=== PATIENT | female | born 1965 ===

== ENCOUNTER 2018-12-19 10:27 | Outpatient (CLI) | payer BC | END 2018-12-19 10:28 | disposition home or self-care (01) | LOC: PULMO 10:27 ==

== ENCOUNTER 2019-01-04 06:31 | Outpatient (CLI) | payer BC | END 2019-01-04 06:32 | disposition home or self-care (01) | LOC: CARDIO 06:31 | DX: R06.02 Shortness of breath (principal); R00.1 Bradycardia, unspecified; Z01.810 Encounter for preprocedural cardiovascular examination; I27.20 Pulmonary hypertension, unspecified; I08.1 Rheumatic disorders of both mitral and tricuspid valves ==

== ENCOUNTER 2019-03-14 08:54 | Outpatient (CLI) | payer BC | END 2019-03-14 08:55 | disposition home or self-care (01) | LOC: PAT 08:54 ==

== ENCOUNTER 2019-03-27 08:11 | Inpatient (IN) | payer BC ==
[2019-03-27] MEDS ORDERED: Desflurane Inhalation Anesthetic Liq (240 ml) ONE (09:48)
[2019-03-27] MEDS ORDERED: Propofol 10 mg/ml Inj (20 ML) ONE (10:14)
[2019-03-27] MEDS ORDERED: Rocuronium 10 mg/ml (5 ml) ONE (10:15)
[2019-03-27] MEDS ORDERED: Succinylcholine 200 mg/10 ml Inj IV ONE (10:15)
[2019-03-27] MEDS ORDERED: CeFAZolin 1 gm in NS 100ml IVPB ONE (10:30)
[2019-03-27] MEDS ORDERED: Bupivacaine Liposomal Inj 20 ml INJ ONE (10:56)
--- NOTE | 2019-03-27 12:15 | RAD ---
Date of service: 03/27/2019 PROCEDURE: Fluoroscopy up to 1 hr HISTORY: Gallbladder COMPARISON: TECHNIQUE: 27.8 sec of fluoro time. Cumulative dose 10.25 mGy. Two images were submitted. FINDINGS: Two images were obtained. There is a filling defect in the common duct which could represent an air bubble. There are no filling defects in the distal common duct. There is some extravasation of contrast material in the region of the cystic duct and extending beneath the under surface of the liver. IMPRESSION: As above
[2019-03-27] MEDS ORDERED: Collagen Hemostat Powder ONE (12:23)
[2019-03-27] MEDS ORDERED: Collagen Hemostat Powder MM ONE (12:29)
[2019-03-27] MEDS ORDERED: Bupivacaine 0.5% 50 ML IJ ONE (12:54)
[2019-03-27] MEDS ORDERED: Neostigmine Methylsulfate 3mg/3ml Syringe IV ONE (13:06)
[2019-03-27] MEDS ORDERED: Bupivacaine 0.5% Inj(30mL) IJ ONE (13:20)
[2019-03-27] MEDS ORDERED: HYDROmorphone 0.5 mg/0.5 ml ISec IVP PRN (13:44)
[2019-03-27] MEDS ORDERED: Lactated Ringer's 1,000 ML IV SCH (13:45)
[2019-03-27] MEDS: HYDROmorphone 0.5 mg/0.5 ml ISec ONE ×2 (13:51→14:10)
--- NOTE | 2019-03-27 14:14 | PCM.SURG1 ---
Surgeon's Initial Post Op Note - Surgeon's Notes Surgeon: Dr Eastman [place] Engineer: Dr Richardson PGY4, Dr Muniz PGY3, MS3 Mario Type of Anesthesia: General Endo Anesthesia Administered By: Dr Baig Pre-Operative Diagnosis: Cholelithiasis. Recurrent gallstone pancreatitis. Ventral hernia. loose upper incisor tooth noted in SDS Operative Findings: numerous adhesions. multiple fascial defects. patent CBD on IOC Post-Operative Diagnosis: as above Operation Performed: Exploratory laparotomy. Lysis of adhesions. Cholecystectomy w/ Intraoperative Cholangiogram. Component Seperation. Repair of Ventral hernias w/ Mesh Specimen/Specimens Removed: gallbladder. bile culture. hernia sac Estimated Blood Loss: EBL {In ML}: 250 Blood Products Given: N/A Drains Used: Lincoln Samriento Post-Op Condition: Good Date of Surgery/Procedure: 03/27/19 Time of Surgery/Procedure: 14:13
[2019-03-27] MEDS: Dextrose 5%/0.45% NS 1,000 ML IV SCH (16:05)
[2019-03-27] MEDS: ceFAZolin IV 2 gm in Dextrose 2 GM/50 ML BAG IVPB SCH ×2 (16:43→21:36)
[2019-03-27] MEDS: HYDROmorphone 0.5 mg/0.5 ml ISec IVP PRN ×2 (17:51→20:49)
[2019-03-27] MEDS ORDERED: Pneumococcal 23-Valent Vaccine IM ONE (19:55)
[2019-03-27 19:56] VITALS: BMI 40.1
[2019-03-27] MEDS ORDERED: HYDROmorphone 1 mg/ml ISec IVP PRN (23:00)
[2019-03-28] MEDS: Dextrose 5%/0.45% NS 1,000 ML IV SCH ×4 (04:00→18:34)
[2019-03-28] MEDS: HYDROmorphone 0.5 mg/0.5 ml ISec IVP PRN ×5 (06:50→23:39)
[2019-03-28 07:39] LABS: EOS # 0.2 (0.0-0.7); EOS % 2.1 % (1.5-5.0); HEMOGLOBIN 12.7 g/dL (12.0-16.0); LYMPH # 0.6 (1.2-3.4); LYMPH % 4.9 % (22.0-35.0); MEAN CELL VOLUME 98.8 fl (80.0-105.0); MEAN CORPUSCULAR HEMOGLOBIN 30.2 pg (25.0-35.0); MEAN CORPUSCULAR HGB CONC 30.5 g/dl (31.0-37.0); MEAN PLATELET VOLUME 11.1 fl (7.0-11.0); MONO # 0.7 (0.1-0.6); MONO % 5.7 % (1.0-6.0); PLATELET COUNT 207 10^3/uL (120.0-450.0); RBC 4.21 10^6/uL (3.5-6.1); RED CELL DISTRIBUTION WIDTH 13.2 % (11.5-14.5); WHITE BLOOD COUNT 11.5 10^3/uL (4.5-11.0)
--- NOTE | 2019-03-28 08:09 | CP.PCM.PN ---
Subjective - Date & Time of Evaluation Date of Evaluation: 03/28/19 Time of Evaluation: 08:07 - Subjective Subjective: Gen Surg: Dr Eastman Pt S&E. NAEO. Had increased pain requirements but now controlled. Complaining of thirst. Denies N/V, F/C. Has been OOB but with difficulty secondary to pain. Voiding independently. Afebrile, VSS Objective - Vital Signs/Intake and Output Vital Signs (last 24 hours): Temp Pulse Resp BP Pulse Ox 98.3 F 75 18 146/90 97 03/28/19 06:00 03/28/19 06:00 03/28/19 06:00 03/28/19 06:00 03/28/19 06:00 Intake and Output: 03/28/19 03/28/19 06:59 18:59 Intake Total 1100 Balance 1100 - Medications Medications: Current Medications Hydromorphone HCl (Dilaudid) 0.5 mg IVP Q3 PRN PRN Reason: Pain, moderate (4-7) Last Admin: 03/28/19 06:50 Dose: 0.5 mg Dextrose/Sodium Chloride (Dextrose 5%/0.45% Ns 1000 Ml) 1,000 mls @ 120 mls/hr IV .Q8H20M [facility] Last Admin: 03/28/19 06:53 Dose: Not Given Ketorolac Tromethamine (Toradol) 15 mg IVP Q6H [facility] Stop: 04/01/19 14:16 Lorazepam (Ativan) 0.5 mg IVP Q6H PRN; Protocol PRN Reason: Anxiety Last Admin: 03/28/19 03:35 Dose: 0.5 mg Ondansetron HCl (Zofran Inj) 4 mg IVP Q4H PRN PRN Reason: Nausea/Vomiting Oxycodone/Acetaminophen (Percocet 5/325 Mg Tab) 1 tab PO Q4H PRN PRN Reason: Pain, Mild (1-3) Stop: 03/31/19 08:05 - Labs Labs: 03/28/19 07:00 - Constitutional Appears: Non-toxic, No Acute Distress - Head Exam Head Exam: NORMAL INSPECTION - Eye Exam Eye Exam: Normal appearance - Respiratory Exam Respiratory Exam: absent: Respiratory Distress - Cardiovascular Exam Cardiovascular Exam: REGULAR RHYTHM. absent: Tachycardia - GI/Abdominal Exam GI & Abdominal Exam: Soft, Tenderness (post-op and appropriate). absent: Distended Additional comments: incision c/d/i MICHELE w/ ~100 cc serosanguinous - Extremities Exam Extremities Exam: absent: Pedal Edema - Neurological Exam Neurological Exam: Alert, Awake, Oriented x3 - Psychiatric Exam Psychiatric exam: Normal Affect, Normal Mood Assessment and Plan - Assessment and Plan (Free Text) Assessment: 53F POD#1 s/p open cholecystectomy w/ ventral hernia repair Plan: adv to CLD ok for Lovenox toradol 15mg Q6H decrease narcotics Percocet PO PRN OOB and ambulate, incentive IS d/w Dr Jaren Richardson, PGY4
[2019-03-28 08:20] LABS: LYMPHOCYTE 6 % (22.0-35.0); MONOCYTE 1 % (1.0-6.0); NEUTROPHIL 93 % (50.0-70.0)
[2019-03-28 08:21] LABS: PLATELET ESTIMATE NORMAL (NORMAL)
[2019-03-28 08:56] LABS: ALB/GLOB RATIO 1.1 (1.1-1.8); ALBUMIN 3.1 g/dL (3.0-4.8); ALT/SGPT 31 U/L (7-56); AST/SGOT 39 U/L (14-36); BLOOD UREA NITROGEN 5 mg/dL (7-21); CALCIUM 8.8 mg/dL (8.4-10.5); GFR NON-AFRICAN AMERICAN > 60
[2019-03-28] MEDS: Enoxaparin 40 mg Syringe SC SCH (09:40)
[2019-03-28] MEDS ORDERED: Alum-Mag Hydrox-Simethicone Susp (30 mL) PO PRN (10:56)
--- NOTE | 2019-03-28 10:58 | CP.PCM.PCO ---
Physician Communication Note - Physician Communication Note Physician Communication Note: PO1:c/o Gerd/Rx OOB
[2019-03-29] MEDS: HYDROmorphone 0.5 mg/0.5 ml ISec IVP PRN (03:55)
[2019-03-29] MEDS: Dextrose 5%/0.45% NS 1,000 ML IV SCH (03:56)
--- NOTE | 2019-03-29 08:11 | CP.PCM.PCO ---
<Epi Richardson A - Last Filed: 03/29/19 08:10> Physician Communication Note - Physician Communication Note Physician Communication Note: POD#2 - doing well - awaiting BM <Jose Eastman - Last Filed: 03/29/19 10:20> Physician Communication Note - Physician Communication Note Physician Communication Note: POD#2 -No flatus-BM/No I&O
[2019-03-29] MEDS: Enoxaparin 40 mg Syringe SC SCH (09:13)
[2019-03-29] MEDS: Oxycodone/Acetaminophen 5/325 mg Tab PO PRN ×3 (10:38→23:21)
[2019-03-29] MEDS: Potassium Chl 10 mEq in D5-1/2 1,000 ML IV SCH (19:20)
[2019-03-30] MEDS: Potassium Chl 10 mEq in D5-1/2 1,000 ML IV SCH ×2 (06:43→18:10)
[2019-03-30 07:02] LABS: BASO # 0.01 K/mm3 (0.0-2.0); BASO % 0.2 % (0.0-3.0); EOS # 0.3 (0.0-0.7); EOS % 5.5 % (1.5-5.0); LYMPH # 0.7 (1.2-3.4); LYMPH % 13.6 % (22.0-35.0); MEAN CELL VOLUME 97.7 fl (80.0-105.0); MEAN CORPUSCULAR HEMOGLOBIN 29.8 pg (25.0-35.0); MEAN CORPUSCULAR HGB CONC 30.5 g/dl (31.0-37.0); MEAN PLATELET VOLUME 10.4 fl (7.0-11.0); MONO # 0.5 (0.1-0.6); MONO % 9.4 % (1.0-6.0); RBC 3.42 10^6/uL (3.5-6.1); WHITE BLOOD COUNT 4.9 10^3/uL (4.5-11.0)
[2019-03-30 07:10] LABS: HEMOGLOBIN 10.2 g/dL (12.0-16.0)
--- NOTE | 2019-03-30 07:32 | CP.PCM.PCO ---
Physician Communication Note - Physician Communication Note Physician Communication Note: POD#3. 150 from MICHELE. No BM/flatus.
[2019-03-30 07:37] LABS: ALBUMIN 2.8 g/dL (3.0-4.8); ALT/SGPT 23 U/L (7-56); AST/SGOT 23 U/L (14-36); BLOOD UREA NITROGEN 7 mg/dL (7-21); CALCIUM 8.3 mg/dL (8.4-10.5); GFR NON-AFRICAN AMERICAN > 60
[2019-03-30] MEDS: Enoxaparin 40 mg Syringe SC SCH (09:54)
--- NOTE | 2019-03-30 10:57 | CP.PCM.PCO ---
Physician Communication Note - Physician Communication Note Physician Communication Note: + flatus/Rx Relistor-Home in am?
[2019-03-30] MEDS: Oxycodone/Acetaminophen 5/325 mg Tab PO PRN (16:37)
[2019-03-30 22:39] VITALS: O2SAT 96
[2019-03-31] MEDS: Potassium Chl 10 mEq in D5-1/2 1,000 ML IV SCH (06:45)
[2019-03-31] MEDS: Oxycodone/Acetaminophen 5/325 mg Tab PO PRN (06:57)
[2019-03-31 07:44] VITALS: BP 131/80; PULSE 59; RESP 20; TEMP 98.3
--- NOTE | 2019-03-31 09:19 | CP.PCM.PN ---
Subjective - Date & Time of Evaluation Date of Evaluation: 03/31/19 Time of Evaluation: 09:17 - Subjective Subjective: General Surgery Dr. Eastman Pt seen and examined @bedside. Pt had 1 episode vomiting after dinner, which pt blames on the food. otherwise no acute events overnight. Pt has no complaints this AM. denies F/C, CP, SOB, N/V, D/C. pain controlled w/ Percocet. (+)Flatus (-)BM. Marin 120cc x24hrs serosanguinous Objective - Vital Signs/Intake and Output Vital Signs (last 24 hours): Temp Pulse Resp BP Pulse Ox 98.3 F 59 L 20 131/80 96 03/31/19 06:00 03/31/19 06:00 03/31/19 06:00 03/31/19 06:00 03/31/19 06:00 Intake and Output: 03/31/19 03/31/19 06:59 18:59 Intake Total 740 Output Total 10 Balance 730 - Medications Medications: Current Medications Al Hydrox/Mg Hydrox/Simethicone (Maalox Plus 30 Ml) 30 ml PO Q4H PRN PRN Reason: Indigestion / Heartburn Last Admin: 03/28/19 12:16 Dose: 30 ml Enoxaparin Sodium (Lovenox) 40 mg SC DAILY [facility]; Protocol Last Admin: 03/30/19 09:54 Dose: 40 mg Famotidine (Pepcid) 20 mg PO 1000,2200 [facility] Last Admin: 03/30/19 22:23 Dose: 20 mg Potassium Chloride/Dextrose/Sod Cl (Potassium Chl 10 Meq In D5-1/2ns) 1,000 mls @ 83 mls/hr IV .Q12H3M [facility] Last Admin: 03/31/19 06:45 Dose: 83 mls/hr Ketorolac Tromethamine (Toradol) 15 mg IVP Q6H [facility] Stop: 04/01/19 14:16 Last Admin: 03/31/19 08:42 Dose: 15 mg Lorazepam (Ativan) 0.5 mg IVP Q6H PRN; Protocol PRN Reason: Anxiety Last Admin: 03/28/19 03:35 Dose: 0.5 mg Ondansetron HCl (Zofran Inj) 4 mg IVP Q4H PRN PRN Reason: Nausea/Vomiting Last Admin: 03/30/19 18:11 Dose: 4 mg - Labs Labs: 03/30/19 06:40 03/30/19 06:40 - Constitutional Appears: Non-toxic, No Acute Distress - Head Exam Head Exam: NORMAL INSPECTION - Eye Exam Eye Exam: Normal appearance - ENT Exam ENT Exam: Mucous Membranes Moist - Respiratory Exam Respiratory Exam: NORMAL BREATHING PATTERN. absent: Accessory Muscle Use, Respiratory Distress - Cardiovascular Exam Cardiovascular Exam: absent: Bradycardia, Tachycardia - GI/Abdominal Exam GI & Abdominal Exam: Soft, Tenderness (appropriate TTP). absent: Distended, Firm, Guarding, Rigid, Rebound Additional comments: marin in place maria antonia c/d/i - Extremities Exam Extremities Exam: Normal Inspection - Neurological Exam Neurological Exam: Alert, Awake, Oriented x3 - Psychiatric Exam Psychiatric exam: Normal Affect, Normal Mood - Skin Skin Exam: Dry, Intact, Normal Color, Warm Assessment and Plan - Assessment and Plan (Free Text) Assessment: 53 y/o F POD#4 s/p open cholecystectomy and ventral hernia repair w/ mesh Plan: - cont pain management - ADAT - dulcolax TN - monitor bowel fxn - encourage OOB to chair/Amb/IS use Possible d/c to day pending BM/Diet tolerance Further recs per Dr. Jaren Muniz PGY3
[2019-03-31] MEDS: Enoxaparin 40 mg Syringe SC SCH (10:11)
--- NOTE | 2019-03-31 10:19 | CP.PCM.DIS ---
Provider - Provider Date of Admission: 03/27/19 13:59 Attending physician: Jose Eastman MD Primary care physician: Jeffrey Morton MD Time Spent in preparation of Discharge (in minutes): 30 Hospital Course - Lab Results Lab Results: Micro Results 03/27/19 15:18 Bile Gram Stain - Final 03/27/19 15:18 Bile Body Fluid Culture - Final No growth. 03/29/19 17:55 Abdominal Fluid Body Fluid Culture - Preliminary NO GROWTH AFTER 24 HOURS Most Recent Lab Values WBC 4.9 10^3/uL (4.5-11.0) D 03/30/19 06:40 RBC 3.42 10^6/uL (3.5-6.1) L 03/30/19 06:40 Hgb 10.2 g/dL (12.0-16.0) L D 03/30/19 06:40 Hct 33.4 % (36.0-48.0) L 03/30/19 06:40 MCV 97.7 fl (80.0-105.0) 03/30/19 06:40 MCH 29.8 pg (25.0-35.0) 03/30/19 06:40 MCHC 30.5 g/dl (31.0-37.0) L 03/30/19 06:40 RDW 13.0 % (11.5-14.5) 03/30/19 06:40 Plt Count 203 10^3/uL (120.0-450.0) 03/30/19 06:40 MPV 10.4 fl (7.0-11.0) 03/30/19 06:40 Neut % (Auto) 71.3 % (50.0-68.0) H 03/30/19 06:40 Lymph % (Auto) 13.6 % (22.0-35.0) L 03/30/19 06:40 Dooly % (Auto) 9.4 % (1.0-6.0) H 03/30/19 06:40 Eos % (Auto) 5.5 % (1.5-5.0) H 03/30/19 06:40 Baso % (Auto) 0.2 % (0.0-3.0) 03/30/19 06:40 Lymph # (Auto) 0.7 (1.2-3.4) L 03/30/19 06:40 Dooly # (Auto) 0.5 (0.1-0.6) 03/30/19 06:40 Eos # (Auto) 0.3 (0.0-0.7) 03/30/19 06:40 Baso # (Auto) 0.01 K/mm3 (0.0-2.0) 03/30/19 06:40 Absolute Neuts (auto) 3.47 (1.4-6.5) 03/30/19 06:40 Neutrophils % (Manual) 93 % (50.0-70.0) H 03/28/19 07:00 Lymphocytes % (Manual) 6 % (22.0-35.0) L 03/28/19 07:00 Monocytes % (Manual) 1 % (1.0-6.0) 03/28/19 07:00 Platelet Evaluation Normal (NORMAL) 03/28/19 07:00 Sodium 139 mmol/L (132-148) 03/30/19 06:40 Potassium 3.8 mmol/L (3.6-5.0) 03/30/19 06:40 Chloride 104 mmol/L (98-107) 03/30/19 06:40 Carbon Dioxide 31 mmol/L (21-33) 03/30/19 06:40 Anion Gap 8 (10-20) L 03/30/19 06:40 BUN 7 mg/dL (7-21) 03/30/19 06:40 Creatinine 0.6 mg/dl (0.7-1.2) L 03/30/19 06:40 Est GFR ( Amer) > 60 03/30/19 06:40 Est GFR (Non-Af Amer) > 60 03/30/19 06:40 Random Glucose 95 mg/dL (70-110) 03/30/19 06:40 Calcium 8.3 mg/dL (8.4-10.5) L 03/30/19 06:40 Total Bilirubin 0.3 mg/dL (0.2-1.3) 03/30/19 06:40 AST 23 U/L (14-36) 03/30/19 06:40 ALT 23 U/L (7-56) 03/30/19 06:40 Alkaline Phosphatase 57 U/L (38-126) 03/30/19 06:40 Total Protein 5.7 g/dL (5.8-8.3) L 03/30/19 06:40 Albumin 2.8 g/dL (3.0-4.8) L 03/30/19 06:40 Globulin 2.9 gm/dL 03/30/19 06:40 Albumin/Globulin Ratio 1.0 (1.1-1.8) L 03/30/19 06:40 - Hospital Course Hospital Course: 53 y/o F w/ PMHx obesity s/p gastric bypass and gallstone pancreatitis presented to [facility] on 03/27/19 for elective open cholecystectomy and incisional hernia repair. Pt underwent celiotomy, cholecystectomy w/ IOC, abd component separation, and incisional hernia repair w/ mesh. Pt tolerated the procedure well w/ no complications. Pt was admitted to the surgical service post-operatively for monitoring of pain control, diet tolerance, and bowel function. Pain was well controlled w/ IV and PO pain medication. Pt was started on CLD POD#1 and advanced as tolerated to regular diet. Pt given one time order Relistor and Dulcolax ND to stimulate bowel fxn. Pt w/ flatus, tolerating regular diet. Pt cleared for discharge on POD#4 w/ jovita drain. Instructions reviewed w/ pt who demonstrated appropriate understanding. For full hospital course, see EMR. Discharge Exam - Head Exam Head Exam: NORMAL INSPECTION - Eye Exam Eye Exam: Normal appearance - ENT Exam ENT Exam: Mucous Membranes Moist - Respiratory Exam Respiratory Exam: NORMAL BREATHING PATTERN. absent: Accessory Muscle Use, Respiratory Distress - Cardiovascular Exam Cardiovascular Exam: REGULAR RHYTHM. absent: Bradycardia, Tachycardia - GI/Abdominal Exam GI & Abdominal Exam: Soft, Tenderness (appropriate maria luz-incisional TTP). absent: Distended, Firm, Guarding, Rigid Additional comments: jovita drain in place - Extremities Exam Extremities exam: normal inspection - Neurological Exam Neurological exam: Alert, Oriented x3 - Psychiatric Exam Psychiatric exam: Normal Affect, Normal Mood - Skin Skin Exam: Dry, Intact, Normal Color, Warm Discharge Plan - Follow Up Plan Condition: GOOD Disposition: HOME/ ROUTINE Patient education suggested?: Yes Instructions: Cholecystectomy, Open Surgery, Lincoln-Sarmiento Drain, How to Prevent Surgical Site Infections, Abdominal Hernia Repair, Open Surgery Additional Instructions: Follow up with Dr. Eastman in 7-14 days Follow up with PMD in 7-10days Take all medication as prescribed Pt may shower however do not soak or scrub at incision. No pools, tubs, or baths Record drain out; drain will be removed in office by Dr. Eastman No heavy lifting (nothing heavier than 2 gallons of milk) for 6 weeks continue wearing abd binder as need for support/comfort Maintain low fat diet until seen by Dr. Eastman Call Dr. Eastman/return to the ED if fever >100.5, pain, redness, or rupture of incision Referrals: Jeffrey Morton MD [Primary Care Provider] - Jose Eastman MD [Staff Provider] - [facility] [Outside]
--- NOTE | 2019-04-02 22:14 | OP ---
PROCEDURE DATE: 03/27/2019 SURGEON: Jose Eastman MD DIE REPAIRER TRIMMER DIES: Epi Richardson DO, PGY-4 and Queta Muniz DO, PGY-3 ANESTHESIA: General endotracheal - Exparel. JET INSPECTOR: Socrates Baig MD PREOPERATIVE DIAGNOSES: 1. Cholelithiasis with recurrent gallstone pancreatitis. 2. Partially reducible ventral hernia. 3. 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 POSTOPERATIVE DIAGNOSES: 1. Cholelithiasis with recurrent gallstone pancreatitis. 2. Partially reducible ventral hernia. 3. 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 NOTE: The patient has loose upper incisor and is aware of this. PROCEDURES: 1. Exploratory laparotomy with enterolysis. 2. Cholecystectomy with intraoperative cholangiogram. 3. Component separation, repair of ventral hernia with mesh. OPERATIVE INDICATIONS: The patient is a 53-year-old [place] female who has undergone a gastric procedure and lost well over 100 pounds and is now suffering from ventral hernia from the incision and significant irritation and inflammation from the massive panniculus that results from the weight loss. There are several admissions noted with elevated amylase and lipase and abdominal pain, and the patient has been confirmed to have stones in the gallbladder without any evidence of common duct dilatation at this point. She has been recommended by her private physician for surgery and she has been counseled by the surgeon and advised to undergo laparotomy with repair of the hernia and removal of the gallbladder. The insurance company has denied her panniculectomy at this time. Pictures were sent to them and they state that the size is not enough and is not debilitating enough. It is of some interest that the patient had a different insurance when she first came here and stated that the insurance had agreed to the panniculectomy, but it is now denied and cannot be done at this setting. OPERATIVE NOTE: The patient was brought to the operating room from the same day holding area where she has been evaluated and the site marked. She undergoes time-out procedure and is identified by her wristband. She was placed on the table in a supine manner and undergoes the induction of general anesthesia and insertion of an endotracheal tube. Sequential compression devices were placed in the lower extremities and the abdomen was prepped with Hibiclens chlorhexidine preparation and the patient was aseptically draped. Midline incision was made with sharp dissection carried down through the fascia into the hernia sac and into the peritoneal cavity below. The abdomen is now explored and the incision extended cephalad and caudad. Adhesions are densely found throughout the entire abdomen and these were carefully lysed and hemostasis contained with cautery and 2-0 chromic catgut tie. Surprisingly, two additional hernias are encountered and the incision required to be extended up to the xiphoid in the midline. The hernia sacs were dissected free and submitted to pathology in formalin. A Bookwalter retractor was inserted and the gallbladder was removed after dissecting the whitley hepatis and identifying the cystic artery and cystic duct and the critical view of safety. An intraoperative cholangiogram was performed after hemoclipping the cystic duct and incising the same. Free flow of contrast is seen throughout the biliary tree and into the duodenum without evidence of stone or obstruction. The gallbladder is now removed and the cystic duct and cystic artery doubly hemoclipped and the liver bed was electrocoagulated with the fulgurating current. The gallbladder was submitted to pathology in formalin and the contents cultured aerobically and anaerobically at this point. The operating team replaced its gowns and gloves, washed the area with Clorpactin solution and addressed the ventral hernia. Significant fascial approximation tightness was encountered and it is apparently necessary to place an intraoperative mesh, which is available and is measured 18 x 15 cm in size. It is secured to the anterior abdominal wall with interrupted 2-0 Prolene sutures and the fascia was then approximated with [id number] #1 Novofil sutures from the xiphoid down past the umbilicus. The mesh is now drained with a Marin drain inserted on top of it and brought out through a separate stab wound, secured to the skin with 2-0 Surgidac polyester suture. The subcutaneous space was now lavaged with Clorpactin solution, aspirated, and the fascia and skin infiltrated with the bupivacaine long-acting (72 hours) analgesia. Interrupted 2-0 subcutaneous approximation was employed and the skin was closed with the AutoSuture skin stapler. A dry dressing was applied and an abdominal binder placed around the patient's abdomen. The patient was awakened, extubated and was transported to the recovery room in a satisfactory condition. Estimated blood loss during this procedure was approximately 250 mL of blood. The surgical assistants were present throughout the entire procedure and were extremely essential in the dissection, exposure and closure. Jose Eastman MD [facility] # [id number]
== END 2019-03-31 12:11 | disposition home or self-care (01) | DRG 415 ==
LOC: SDS 08:11 → 5RNO 13:59 → SDS 13:59 → 5RNO 14:52
PROVIDERS: ADMIT Surgery; ATTEND Surgery
PROC: 0DNW0ZZ Release Peritoneum, Open Approach (ICD-10-PCS; 2019-03-27)
PROC: BF131ZZ Fluoroscopy of Gallbladder and Bile Ducts using Low Osmolar Contrast (ICD-10-PCS; 2019-03-27)
PROC: 0FT40ZZ Resection of Gallbladder, Open Approach (ICD-10-PCS; principal; 2019-03-27 10:30)
PROC: 0WQF0ZZ Repair Abdominal Wall, Open Approach (ICD-10-PCS; 2019-03-27 10:30)
DX: K80.10 Calculus of gallbladder with chronic cholecystitis without obstruction (principal); K86.1 Other chronic pancreatitis; K43.9 Ventral hernia without obstruction or gangrene; K66.0 Peritoneal adhesions (postprocedural) (postinfection); K08.89 Other specified disorders of teeth and supporting structures; Z98.84 Bariatric surgery status; K21.9 Gastro-esophageal reflux disease without esophagitis; M79.3 Panniculitis, unspecified

== ENCOUNTER 2019-04-03 10:32 | Emergency (ER) | payer BC ==
[2019-04-03 10:44] VITALS: BMI 36.0
--- NOTE | 2019-04-03 11:06 | ED PDOC ---
Arrival/HPI - General Chief Complaint: Medical Clearance Time Seen by Provider: 04/03/19 10:57 Historian: Patient - History of Present Illness Narrative History of Present Illness (Text): 53 y/o female with PMH of CHF, Gastric Bypass (2010) presents to the ED sent by PMD Dr. Jose Eastman for bloodwork and ID consult s/p VRE positive incision site culture from 03/29/19. Pt underwent cholecystectomy 1 week ago on 03/27/19 without complication. PMD states he believes culture was not performed correctly and wishes for it to be repeated. Pt has no systemic symptoms or signs of wound infection. Denies fever, chills, nausea, vomiting, abdominal pain, dizziness, incision site redness, erythema, drainage, or any other associated symptoms. Past Medical History - Provider Review Nursing Documentation Reviewed: Yes Primary Care Provider: Jeffrey Morton - Infectious Disease Hx of Infectious Diseases: None - Reproductive Menopause: Yes - Cardiac Hx Congestive Heart Failure: Yes - Neurological Hx Paralysis: No - Hematological/Oncological Hx Blood Transfusions: No - Musculoskeletal/Rheumatological Hx Falls: No - Gastrointestinal Other/Comment: Gatric Bypass 2010. hernia repair & gallbladder removal 2019 - Genitourinary/Gynecological Hx Genitourinary Disorders: No - Psychiatric Hx Psychophysiologic Disorder: No Hx Emotional Abuse: No Hx Physical Abuse: No Hx Substance Use: No - Surgical History Hx Section: Yes (x 1) Hx Cholecystectomy: Yes Hx Gastric Bypass Surgery: Yes (2010) - Anesthesia Hx Anesthesia: Yes Hx Anesthesia Reactions: Yes ("TOOK LONG TO WAKE" POST BARIATRIC SX) Hx Malignant Hyperthermia: No - Suicidal Assessment Feels Threatened In Home Enviroment: No Family/Social History - Physician Review Nursing Documentation Reviewed: Yes Family/Social History: No Known Family HX Smoking Status: Former Smoker Hx Alcohol Use: Yes (Social) Hx Substance Use: No Allergies/Home Meds Allergies/Adverse Reactions: Allergies No Known Allergies Allergy (Verified 03/14/19 10:14) Home Medications: Home Meds Medication Instructions Recorded Confirmed No Known Home Med 03/14/19 03/14/19 Review of Systems - Review of Systems Constitutional: Normal. absent: Fevers Respiratory: Normal. absent: SOB, Cough Cardiovascular: Normal. absent: Chest Pain, Palpitations, Syncope Gastrointestinal: Normal. absent: Abdominal Pain, Nausea, Vomiting Musculoskeletal: Normal. absent: Back Pain, Neck Pain Skin: Normal. absent: Rash Neurological: Normal. absent: Headache, Dizziness Physical Exam Vital Signs Reviewed: Yes Temperature: Afebrile Blood Pressure: Normal Pulse: Bradycardic Respiratory Rate: Normal Appearance: Positive for: Well-Appearing, Non-Toxic, Comfortable Pain Distress: None Mental Status: Positive for: Alert and Oriented X 3 - Systems Exam Head: Present: Atraumatic, Normocephalic Pupils: Present: PERRL Extroacular Muscles: Present: EOMI Conjunctiva: Present: Normal Mouth: Present: Moist Mucous Membranes Neck: Present: Normal Range of Motion Respiratory/Chest: Present: Clear to Auscultation, Good Air Exchange. No: Respiratory Distress, Accessory Muscle Use Cardiovascular: Present: Regular Rate and Rhythm, Normal S1, S2. No: Murmurs Abdomen: Present: Tenderness (mild over incision site), Normal Bowel Sounds, Other (18cm midline vertical surgical incision with 20 maria antonia intact; no evidence of infection or dehisence) Upper Extremity: Present: Normal ROM Lower Extremity: Present: Normal ROM Neurological: Present: GCS=15, Speech Normal, Motor Func Grossly Intact, Normal Sensory Function, Gait Normal Skin: Present: Warm, Dry, Normal Color. No: Rashes Psychiatric: Present: Alert, Oriented x 3, Normal Insight, Normal Concentration Medical Decision Making ED Course and Treatment: Initial Plan: * Speak with Dr. Eastman * Labs 11:[address] Eastman who asks for CBC, CMP, repeat culture and opinion from Dr. Arvizu. Wishes for culture to be obtained from fluid in drain. Bloodwork reviewed, unremarkable. No leukocytosis. Culture obtained by dripping serosanguinous fluid from drain bulb directly on to culture swab. 12:[address] Eastman who spoke with ID, Dr. Arvizu who recommends repeat culture and discharge home without antibiotics, as patient has no clinical or laboratory signs of infection. Pt is to followup in his office at scheduled appointment tomorrow at 1400. Diagnostic testing results and plan of care discussed with patient. Strict instructions given regarding prescription use, importance of followup, and signs/symptoms to return to ER including fever, chills, signs of wound infection, or any other new/worsening symptoms. Pt verbalized understanding of discussion. Patient is A&Ox3, ambulating with steady gait, with vital signs stable for discharge. - Lab Interpretations Lab Results: 05/14/19 11:30 04/03/19 11:50 Lab Results 04/03/19 11:50: Sodium 138, Potassium 4.0, Chloride 103, Carbon Dioxide 30, Anion Gap 9 L, BUN 11, Creatinine 0.7, Est GFR ( Amer) > 60, Est GFR (Non-Af Amer) > 60, Random Glucose 92, Calcium 8.8, Total Bilirubin 0.2, AST 30, ALT 31, Alkaline Phosphatase 90, Total Protein 6.3, Albumin 3.2, Globulin 3.2, Albumin/Globulin Ratio 1.0 L 04/03/19 11:30: WBC 7.3 D, RBC 3.84, Hgb 11.7 L, Hct 36.9, MCV 96.1, MCH 30.5, MCHC 31.7, RDW 12.7, Plt Count 368, MPV 10.2, Neut % (Auto) 68.3 H, Lymph % (Auto) 18.8 L, [place] % (Auto) 7.0 H, Eos % (Auto) 5.6 H, Baso % (Auto) 0.3, Lymph # (Auto) 1.4, [place] # (Auto) 0.5, Eos # (Auto) 0.4, Baso # (Auto) 0.02, Absolute Neuts (auto) 4.97 I have reviewed the lab results: Yes Disposition/Present on Arrival - Present on Arrival Any Indicators Present on Arrival: No History of DVT/PE: No History of Uncontrolled Diabetes: No Urinary Catheter: No History of Decub. Ulcer: No History Surgical Site Infection Following: None - Disposition Have Diagnosis and Disposition been Completed?: Yes Diagnosis: Encounter for laboratory test Disposition: HOME/ ROUTINE Disposition Time: 12:45 Condition: STABLE Discharge Instructions (ExitCare): How to Prevent Surgical Site Infections, Surgical Wound (DC) Additional Instructions: Followup with Dr. Eastman tomorrow as scheduled - 2pm at his office. Keep incision site clean, dry, and covered Return to ER with any new/worsening symptoms Referrals: Jose Eastman MD [Staff Provider] - Follow up with primary Forms: [facility] (Turkmen), WORK NOTE
[2019-04-03 11:08] VITALS: TEMP 98.5
[2019-04-03 11:45] LABS: BASO # 0.02 K/mm3 (0.0-2.0); BASO % 0.3 % (0.0-3.0); EOS # 0.4 (0.0-0.7); EOS % 5.6 % (1.5-5.0); HEMOGLOBIN 11.7 g/dL (12.0-16.0); LYMPH # 1.4 (1.2-3.4); LYMPH % 18.8 % (22.0-35.0); MEAN CELL VOLUME 96.1 fl (80.0-105.0); MEAN CORPUSCULAR HEMOGLOBIN 30.5 pg (25.0-35.0); MEAN CORPUSCULAR HGB CONC 31.7 g/dl (31.0-37.0); MEAN PLATELET VOLUME 10.2 fl (7.0-11.0); MONO # 0.5 (0.1-0.6); RBC 3.84 10^6/uL (3.5-6.1); RED CELL DISTRIBUTION WIDTH 12.7 % (11.5-14.5); WHITE BLOOD COUNT 7.3 10^3/uL (4.5-11.0)
--- NOTE | 2019-04-03 12:05 | CP.PCM.PCO ---
Physician Communication Note - Physician Communication Note Physician Communication Note: I/D Sven lionel no Ab/Re c/s drainage
[2019-04-03 12:21] LABS: ALBUMIN 3.2 g/dL (3.0-4.8); ALT/SGPT 31 U/L (7-56); AST/SGOT 30 U/L (14-36); BLOOD UREA NITROGEN 11 mg/dL (7-21); CALCIUM 8.8 mg/dL (8.4-10.5); GFR NON-AFRICAN AMERICAN > 60
[2019-04-03 13:19] VITALS: BP 139/89; PULSE 88; RESP 17; O2SAT 99
--- NOTE | 2019-04-04 17:09 | CON ---
DATE: 04/03/2019 CHIEF COMPLAINT: Positive drainage culture from wound. HISTORY OF PRESENT ILLNESS: The patient is a 53-year-old [place] female with one-week history of a laparotomy for three ventral hernias that were markedly symptomatic and a cholecystectomy for recurring pancreatitis. The patient has undergone a gastric bypass in 2010 and has had multiple abdominal complaints and is found to have cholelithiasis that was not corrected at the original surgery. The patient has been told by one of her insurance companies that having lost several 100 pounds that her panniculus can be removed and is covered under the policy; however, the patient has apparently changed the insurance and it is denied. So, she underwent the laparotomy, fixing the hernia and the cholecystectomy at the same time. She did require a large 18 cm mesh that was placed at the time of surgery. The Gram stain in the OR failed to reveal any organisms and cultures taken on 03/27/2019 were negative for any growth two days later. On 03/29/2019, she had undergone a culture of the suction drain and it returned on 04/03/2019 as VRE sensitive to Zyvox. The patient was contacted by the surgeon, asked to come to the ER and was seen there. She is asymptomatic, moving her bowels, tolerating the diet and not requiring any pain medicine at this point, and she describes the drainage as being pale yellow to pink-staining and very minimal drainage at this point. She has no fever. Her laboratory data taken here shows a white count of 7.5 and her hemoglobin is 11.7 and there is normal differential at this point. A repeat culture is taken from the drainage fluid after cleansing the suction ball and its drainage port and the drainage is placed on the Culturette and submitted to Pathology for aerobic and anaerobic coverage. The drain is left in place, the wound is healed and there is no evidence of any tenderness or evidence of any inflammation. During the operative procedure, lysis of adhesions was encountered and there was no evidence of any bowel injury or any contamination at the time of the surgery. Consultation is made at this point [id number] with Dr. Dexter Gaytan, chief of Infectious Disease here at [facility], and the whole story was completely explained and he felt that because the culture only appeared in the broth six days after the specimen was obtained, that this is probably nothing more than a colonization and he does not recommend antibiotics even though the surgeon encouraged the use of the Zyvox because of the mesh placement. He felt that it did not meet any of the indications and was not necessary at this point. This information was given back to the patient and she was discharged from the emergency room, will be followed up in my office for removal of the drain and suture removal and further evaluation of the possibility of infection. DISCHARGE DIAGNOSES: 1. Postoperative wound culture abnormality. 2. Clinically not significant. 3. Recommendation for close observation and followup This dictation will be electronically signed without being read. Jose Eastman MD
== END 2019-04-03 13:23 | disposition home or self-care (01) ==
LOC: ED 10:32
DX: Z04.89 Encounter for examination and observation for other specified reasons (principal); I50.9 Heart failure, unspecified; Z98.84 Bariatric surgery status; Z90.49 Acquired absence of other specified parts of digestive tract; Z87.891 Personal history of nicotine dependence